=== PATIENT | male | born 1945 | race Caucasian/White ===

== ENCOUNTER → 2025-04-03 | Outpatient (CLI) | payer MEDICARE, SELFPAY ==
[2025-04-03 11:49] LABS: PSA,Total- Diagnostic 1225.00 ng/mL (0.00-4.00)
== END | disposition home or self-care (01) ==
LOC: LAB 09:56
PROVIDERS: Referring Provider Urology; Visit Provider Urology
DX: N40.1 Benign prostatic hyperplasia with lower urinary tract symptoms (principal)
CPT/HCPCS: 36415; 84153